=== PATIENT | female | born 1985 ===

== ENCOUNTER 2017-10-24 08:46 | Emergency (ER) | payer BC ==
[2017-10-24 09:09] VITALS: BP 143/86
[2017-10-24] MEDS ORDERED: Clarithromycin TAB* 500 MG PO ONE (09:40)
--- NOTE | 2017-10-24 09:43 | ED ---
Throat Pain/Nasal Congestion - HPI Summary HPI Summary: 32 yr old female with the complaint of sinus pain and pressure. Onset of symptoms a couple of weeks ago with a sinus pressure mostly on the left maxillary sinus area, and green nasal secretions. - History of Current Complaint Chief Complaint: UCRespiratory Time Seen by Provider: 10/24/17 09:01 - Allergies/Home Medications Allergies/Adverse Reactions: Allergies Allergy/AdvReac Type Severity Reaction Status Date / Time Amoxicillin [From Augmentin] Allergy Hives Verified 10/24/17 09:05 Clavulanic Acid Allergy Hives Verified 10/24/17 09:05 [From Augmentin] Home Medications: Home Medications Bcp 1 tab PO DAILY 10/24/17 [History] PMH/Surg Hx/FS Hx/Imm Hx Previously Healthy: Yes Infectious Disease History: No Infectious Disease History: Denies: Traveled Outside the [place] in Last 30 Days - Family History Known Family History: Positive: Other - both parents positive for anxiety - Social History Alcohol Use: Occasionally Substance Use Type: Reports: None Smoking Status (MU): Former Smoker Review of Systems Constitutional: Negative Positive: Nasal Discharge, Other - sinus pressure All Other Systems Reviewed And Are Negative: Yes Physical Exam Triage Information Reviewed: Yes Vital Signs On Initial Exam: Initial Vitals Temp Pulse Resp BP Pulse Ox 98.5 F 74 20 143/86 100 10/24/17 09:05 10/24/17 09:05 10/24/17 09:05 10/24/17 09:05 10/24/17 09:05 Vital Signs Reviewed: Yes Appearance: Positive: Well-Appearing, No Pain Distress Skin: Positive: Warm Eyes: Positive: EOMI ENT: Positive: Pharynx normal, Sinus tenderness - tender to percussion left maxillary sinus Neck: Positive: Supple, Nontender Respiratory/Lung Sounds: Positive: Clear to Auscultation, Breath Sounds Present Cardiovascular: Positive: RRR. Negative: Murmur Abdomen Description: Positive: Nontender Musculoskeletal: Positive: Strength/ROM Intact Neurological: Positive: Sensory/Motor Intact, Alert, Oriented to Person Place, Time, CN Intact II-III Psychiatric: Positive: Normal - Watson Coma Scale Best Eye Response: 4 - Spontaneous Best Motor Response: 6 - Obeys Commands Best Verbal Response: 5 - Oriented Coma Scale Total: 15 Diagnostics - Vital Signs Vital Signs Temp Pulse Resp BP Pulse Ox 10/24/17 09:05 98.5 F 74 20 143/86 100 - Laboratory Lab Statement: Any lab studies that have been ordered have been reviewed, and results considered in the medical decision making process. EENT Course/Dx - Course Course Of Treatment: 32 yr old with sinusitis. Allergic to augmentin. Rx with biaxin. - Diagnoses Provider Diagnoses: Sinusitis, Hypertension Discharge - Discharge Plan Condition: Good Disposition: HOME Prescriptions: Clarithromycin TAB* [Biaxin 500 MG TAB*] 500 mg PO BID #20 tab Patient Education Materials: Sinusitis (ED), Hypertension (ED) Referrals: Mariam Rothman MD [Primary Care Provider] -
== END 2017-10-24 09:46 | disposition home or self-care (01) ==
LOC: UCCORT 08:46
DX: J32.9 Chronic sinusitis, unspecified (principal); I10 Essential (primary) hypertension; Z88.1 Allergy status to other antibiotic agents; Z87.891 Personal history of nicotine dependence
CPT/HCPCS: 99212; A9270-GY; G0463

== ENCOUNTER 2017-11-11 14:02 | Emergency (ER) | payer BC ==
--- OUTSIDE RECORDS SUMMARY | 2017-11-11 14:12 | XMS REPORT ---
:1985 External Reference #:[id number] Author Organization [facility] Address [address] [address] Phone [phone] Care Team Providers Name Role Phone Mariam Rothman MD Care Team Information Bagger Meat Unavailable Payers Type Date Identification Payment Subscriber Numbers Provider Health Maintenance Effective: Policy Number: BCBS Ppo [facility] ([facility] [place]) 08/28/2016 [id number] PayID: [id number] [address] [address] [place] [address] Problems Description No Information Family History Date Family Member(s) Problem(s) Comments Onset: (age 54 Years) Father CAD Father Allergic Rhinitis Father Anxiety Mother Thyroid Disease Mother Depression Children None First Brother PTSD experience Social History Type Date Description Comments Education Higest level completed, Bachelor's Degree Marital Status Single engaged 06/27/16 planned wedding Occupation Currently Working Occupation [employer] care ETOH Use Occasionally consumes alcohol Smoking Patient is a former smoker Recreational Drug Use Denies Drug Use Exercise Type/Frequency Exercises regularly walk, gym, running; 09/16/16 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 min per week, 10k steps per day [facility] Allergies, Adverse Reactions, Alerts Date Description Reaction Status Severity Comments 11/06/2017 Augmentin active Rash On Hands 09/16/2016 NKDA inactive Medications Medication Date Status Form Strength Qnty SIG Indications Ordering Provider Azelastine HCL 08/27/ Active Solution 0.15% 30ml instill J30.9 Tawanna (Nasal) 2017 1 or 2 Mariam mayfield sprays daily into each nostril as needed Fluticasone 07/08/ Active Suspension 50mcg/Act 15.800 2 sprays J30.9 Cunningha Propionate 2017 ml to each Mariam mayfield nostril MD daily Vitamin B-12 00/00/ Active Tablets 1000mcg 1 by Unknown 0000 mouth every day Vitamin D 00/ Active Tablets 2000Unit 1 by Unknown 0000 mouth every day Cyclafem / Active Tablets 1-35mg-mcg 84tabs 1 tab Cunningha 0000 daily--f Mariam mayfield uture MD refills with [facility] Amoxicillin/Clav 08/27/ Hx Tablets 875-125mg 28tabs 1 by J01.90 Tawanna ulanate 2016 - mouth Mariam mayfield, Potassium 09/10/ twice a MD 2016 day Sertraline HCL 09/30/ Hx Tablets 100mg 90tabs 1 by F43.23 Tawanna 2016 - mouth Mariam mayfield, 07/07/ every MD 2016 day Sertraline HCL 09/09/ Hx Tablets 50mg 2 by F43.23 Unknown 2016 - mouth 09/30/ every 2016 day Glycopyrrolate 00/ Hx Tablets 1mg one tab Unknown 0000 - by mouth 07/07/ four 2017 times a day as needed Lorazepam 00/ Hx Tablets 1mg 1 every F43.23 Unknown 0000 - 6 hours 10/17/ as 2017 needed Probiotic Pearls 00/00/ Hx Capsules 1 cap Unknown 0000 - daily 2017 Biotin Maximum 00/00/ Hx Tablets [id number] one day Unknown Strength 0000 - 2017 Immunizations CPT Code Status Date Vaccine Reaction Lot # [id number] Given 07/07/2017 Afluria Imunization [facility] 30082 Given 07/15/2016 Hepatitis B Vac Adolescent Administrative Horner 2 Dose Schedule Medical Srvs [id number] Given 07/15/2016 Afluria Or Fluvirin Flu Administrative Horner Vac Intramuscular Medical Srvs [id number] Given 09/28/2010 Tetanus And Diptheria Toxoids For Adult Use-preservative free Vital Signs Date Vital Result Comment 11/06/2017 Weight 215.00 lb Heart Rate 72 /min BP Systolic Lying Down 120 mmHg HR 72 BP Diastolic Lying Down 70 mmHg HR 72 BP Systolic Sitting 120 mmHg HR 76 BP Diastolic Sitting 80 mmHg HR 76 BP Systolic Standing 120 mmHg HR 76 BP Diastolic Standing 70 mmHg HR 76 Respiratory Rate 18 /min Height 69 inches 5'9" BMI (Body Mass Index) 31.7 kg/m2 08/27/2017 Body Temperature 99.0 F Weight 218.00 lb Heart Rate 78 /min BP Systolic 112 mmHg BP Diastolic 78 mmHg Respiratory Rate 16 /min Height 69 inches 5'9" 10/17/16 O2 % BldC Oximetry 99 % BMI (Body Mass Index) 32.2 kg/m2 07/08/2017 Weight 202.00 lb Heart Rate 76 /min BP Systolic 120 mmHg BP Diastolic 80 mmHg Respiratory Rate 16 /min Height 69 inches 5'9" 10/17/16 BMI (Body Mass Index) 29.8 kg/m2 11/19/2016 Weight 202.00 lb Heart Rate 68 /min BP Systolic 116 mmHg BP Diastolic 80 mmHg Respiratory Rate 14 /min Height 69 inches 5'9" 10/17/16 BMI (Body Mass Index) 29.8 kg/m2 10/17/2016 Weight 201.31 lb Heart Rate 76 /min BP Systolic 122 mmHg BP Diastolic 70 mmHg Respiratory Rate 14 /min Height 69 inches 5'9" 10/17/16 BMI (Body Mass Index) 29.7 kg/m2 09/16/2016 Weight 200.00 lb Heart Rate 72 /min BP Systolic 114 mmHg BP Diastolic 72 mmHg Respiratory Rate 14 /min Height 69.25 inches 5'9.25" 09/16/16 BMI (Body Mass Index) 29.3 kg/m2 Results Test Date Test Result H/L Range Note Laboratory test finding 11/11/2016 Urine HCG NEGATIVE Negative 1, 2 (Qualitative) Laboratory test finding 09/17/2016 TSH 2.62 uIU/mL 0.35-4.94 3 Free T4 0.89 ng/dL 0.70-1.48 3 Comprehensive Metabolic (CMP) 09/17/2016 Sodium 136 mmol/L 134-142 3 Potassium 4.6 mmol/L 3.5-5.2 3 Chloride 104 mmol/L 97-109 3 Carbon Dioxide 29 mmol/L 24-34 3 Glucose 90 mg/dL 70-105 3 BUN 9 mg/dL 6-26 3 Creatinine 0.8 mg/dL 0.5-1.4 3 Calcium 8.7 mg/dL 8.5-10.2 3 Total Protein 6.6 g/dL 6.0-8.0 3 Albumin 3.9 g/dL 3.6-4.9 3 Globulin 2.7 g/dL 2.0-3.5 3 A/G Ratio 1.4 Ratio 1.0-2.2 3 Total Bilirubin 0.8 mg/dL 0.1-1.3 3 Alkaline Phosphatase 31 U/L 24-140 3 Alt 10 U/L 3-42 3 Ast 10 U/L 8-42 3 Anion Gap 8 mmol/L 6-14 3 Deepa Egfr >60 >60 3, 4 Non Deepa Egfr >60 >60 3, 5 CBC With Auto Diff 09/17/2016 WBC 5.8 K/uL 4.1-11.0 3 RBC 4.49 M/uL 4.00-5.40 3 Hemoglobin 13.1 gm/dL 12.0-16.0 3 Hematocrit 39.2 % 36.0-47.0 3 MCV 87.3 fL 80.0-97.0 3 MCH 29.1 pg 27.0-32.0 3 MCHC 33.3 g/dL 32.0-36.0 3 RDW 14.1 % 11.5-14.5 3 PLT Count 249 K/ul 140-400 3 Neutrophil 63.4 % 35.0-75.0 3 Lymphocyte 29.1 % 16.0-52.0 3 Monocyte 5.3 % 2.0-10.0 3 Eosinophil 1.8 % 0.0-5.0 3 Basophil 0.4 % 0.0-4.0 3 Abs Neutrophils 3.7 K/uL 2.1-8.0 3 Abs Lymphocytes 1.7 K/uL 0.8-5.5 3 Abs Monocytes 0.3 K/uL 0.1-1.0 3 Abs Eosinophils 0.1 K/uL 0.0-0.5 3 Abs Basophils 0.0 K/uL 0.0-0.3 3 Lipid 09/17/2016 Cholesterol 139 mg/dL 50-199 3 Triglycerides 74 mg/dL 30-200 3 HDL 57 mg/dL 35-85 3, 6 Chol/ HDL Ratio 2.4 ratio Low 3.7-5.6 3 VLDL 15 mg/dL 2-29 3 LDL (Calc) 67 mg/dL 20-99 3, 7 1 COLONOSCOPY 2 FIRST MORNING SPECIMENS GENERALLY CONTAIN THE HIGHEST CONCENTRATION OF HCG AND ARE RECOMMENDED FOR EARLY DETECTION OF . 3 today letter 4 Concerning GFR Guidelines for Americans: Normal function or mild renal disease, if clinically at risk: >/=60 mL/min Moderately decreased: 30-59 Severely decreased: 15-29 Renal failure: <15 5 Concerning GFR Guidelines: Normal function or mild renal disease, if clinically at risk: >/=60 mL/min Moderately decreased: 30-59 Severely decreased: 15-29 Renal failure: <15 Glomerular Filtration Rate (GFR) is estimated based on the MDRD equation, which assumes a steady state for creatinine as recommended by the National Kidney Disease Education Program in conjunction with the National Institutes of Health and the National Kidney Foundation. Clinical conditions in which it may be necessary to measure GFR by using clearance methods include extremes of age and body size, severe malnutrition or obesity, diseases of skeletal muscle, paraplegia or quadriplegia, vegetarian diet, rapidly changing kidney function, and calculation of the dose of potentially toxic drugs that are excreted by the kidneys. 6 Per NCEP ATP III Guidelines: Results lower than 40 mg/dL are suggestive of increased risk for coronary artery disease. Results > or=to 60 mg/dL are considered a negative risk factor. 7 Per NCEP ATP III Guidelines: Normal Population <130 Patients with medical conditions: CHD/DM Optimal: <100 Borderline high: 130-159 High: 160-189 Very high: >189 Procedures Date CPT Code Description Status Comment 11/12/[address] aJquan Benjamin, 11/11/16 colonoscopy, hyperplastic polyp Document: 11/12/16 - Surgical Pathology Reports Encounters Type Date Location Provider CPT E/M Dx Office Visit 08/27/2017 10:45[place] [address] J01.90 J30.9 R51 K60.0 Office Visit 07/08/2017 3:00p [place] [address] F43.22 J30.9 N87.1 Office Visit 11/19/2016 10:45[place] [address] F43.23 K62.5 Z30.41 Office Visit 10/17/2016 10:15a [place] [address] F43.23 N87.1 K62.5 E03.9 Office Visit 09/16/2016 9:30a [facility] [place] [address] F43.23 E03.9 N87.1 K62.5 Plan of Care 11/06/2017 - Mariam Rothman MDH83.09 Labyrinthitis, unspecified earComments: Pt with a prodrome of minor uri sxs, now with "dizziness" that appears related to labyrinth functionbased on Muhammad pike maneuvers. Advised the most common etiology is labyrinthitis, likely viral. Explained how the infection of the balance system can occcur, pictures used to assist explanation, explained sxs, ways to deal with the loss of balance sensation, etc. Advised the pt of the course of illness, like other viruses, will often worsen before improving, may be helped with meclizine/antivert but usually needs to run its course before improving. Advised to call prn headache, ear pain, fever, orhearing loss develop , or if there are concerns for stroke. Call if sxs lasts > 4 weeks or seem triston severe or do not begin to improve within 2 weeks. Would consider registered physical therapist referral if not improving as she reports sxs since the fallFollow up:as needed
[2017-11-11 14:19] VITALS: BP 159/97
--- NOTE | 2017-11-11 14:56 | UC ---
Throat Pain/Nasal Dwayne HPI - HPI Summary HPI Summary: 32 yo female with sore throat x 1-2 days feverish no n/v - History of Current Complaint Chief Complaint: UCGeneralIllness Stated Complaint: ST/SWOLLEN GLANDS/FATIGUE Time Seen by Provider: 11/11/17 14:52 Hx Obtained From: Patient Hx Last Menstrual Period: 10/18/17 ?: Yes Onset/Duration: Gradual Onset, Lasting Days Severity: Moderate Pain Intensity: 6 Pain Scale Used: 0-10 Numeric Cough: None Associated Signs & Symptoms: Positive: Fever - Epiglottits Risk Factors Epiglottis Risk Factors: Negative - Allergies/Home Medications Allergies/Adverse Reactions: Allergies Allergy/AdvReac Type Severity Reaction Status Date / Time amoxicillin [From Augmentin] Allergy Hives Verified 11/11/17 14:14 clavulanic acid Allergy Hives Verified 11/11/17 14:14 [From Augmentin] PMH/Surg Hx/FS Hx/Imm Hx Previously Healthy: Yes - Surgical History Surgical History: None - Family History Known Family History: Positive: Hypertension, Other - both parents positive for anxiety - Social History Alcohol Use: Occasionally Substance Use Type: None Smoking Status (MU): Former Smoker When Did the Patient Quit Smoking/Using Tobacco: 2013 - Immunization History Most Recent Influenza Vaccination: fall 2015 Review of Systems Constitutional: Fever Skin: Negative Eyes: Negative ENT: Sore Throat Respiratory: Negative Cardiovascular: Negative Gastrointestinal: Negative Genitourinary: Negative Motor: Negative Neurovascular: Negative Musculoskeletal: Negative Neurological: Negative Psychological: Negative Is Patient Immunocompromised?: No All Other Systems Reviewed And Are Negative: Yes Physical Exam Triage Information Reviewed: Yes Appearance: Well-Appearing, No Pain Distress, Well-Nourished Vital Signs: Initial Vital Signs Temp 98.2 F 11/11/17 14:15 Pulse 103 11/11/17 14:15 Resp 18 11/11/17 14:15 BP 159/97 11/11/17 14:15 Pulse Ox 97 11/11/17 14:15 Eyes: Positive: Conjunctiva Clear ENT: Positive: Pharynx normal, Tonsillar swelling, Tonsillar exudate, Uvula midline. Negative: Nasal congestion, Nasal drainage, Trismus, Muffled voice, Hoarse voice Neck: Positive: Supple, Nontender, Enlarged Nodes @ - ant cervical Respiratory: Positive: Lungs clear, Normal breath sounds, No respiratory distress, No accessory muscle use Cardiovascular: Positive: RRR, No Murmur Abdomen Description: Positive: Nontender, No Organomegaly Musculoskeletal: Positive: ROM Intact, No Edema Neurological: Positive: Alert Psychological Exam: Normal Skin Exam: Normal Diagnostics - Laboratory Diagnostic Studies Completed/Ordered: strep (+) Throat Pain/Nasal Course/Dx - Differential Dx/Diagnosis Provider Diagnoses: strep throat Discharge - Discharge Plan Condition: Stable Disposition: HOME Prescriptions: Cephalexin CAP* [Keflex CAP*] 500 mg PO BID #20 cap Patient Education Materials: Strep Throat (ED) Referrals: Mariam Rothman MD [Primary Care Provider] - Additional Instructions: recheck in 4 days if not better
== END 2017-11-11 15:02 | disposition home or self-care (01) ==
LOC: UCCORT 14:02
DX: J02.0 Streptococcal pharyngitis (principal); Z87.891 Personal history of nicotine dependence
CPT/HCPCS: 87651; 99212; G0463

== ENCOUNTER 2018-06-02 07:01 | Emergency (ER) | payer BC ==
[2018-06-02 07:25] VITALS: BP 117/68
[2018-06-02] MEDS ORDERED: Ketorolac INJ* 30 MG/ML 1 ML VIAL IM ONE (07:52)
[2018-06-02] MEDS ORDERED: Ondansetron ODT TAB* 4 MG PO ONE (07:52)
[2018-06-02] MEDS ORDERED: Acetaminophen TAB* 325 MG PO ONE (07:52)
--- NOTE | 2018-06-02 08:03 | ED ---
Headache - HPI Summary HPI Summary: 33 yr old with headache, gradual onset two days ago while walking around at the [facility], located in the right frontal area. Headache is moderate, and non radiating. This feels typical for her migraine headaches. She has mild light sensitivity, and noise sensitivity. No Nausea, vomiting. No fever, chills. No neck stiffness. She states she was on Oral Contraceptives until december and had more frequent headaches while on them; this is the first one in several months. She denies change in vision, speech, hearing, swallowing, denies focal weakness , numbness, gait change. - History Of Current Complaint Chief Complaint: UCHeadache Stated Complaint: MIGRAINE Time Seen by Provider: 06/02/18 07:32 Hx Last Menstrual Period: 01/23/18 - Allergies/Home Medications Allergies/Adverse Reactions: Allergies Allergy/AdvReac Type Severity Reaction Status Date / Time amoxicillin [From Augmentin] Allergy Hives Verified 06/02/18 07:17 clavulanic acid Allergy Hives Verified 06/02/18 07:17 [From Augmentin] Home Medications: Home Medications Ibuprofen TAB* [Advil TAB*] 600 mg PO Q6H PRN 06/02/18 [History Confirmed ] PMH/Surg Hx/FS Hx/Imm Hx Previously Healthy: Yes Infectious Disease History: No Infectious Disease History: Denies: Traveled Outside the [place] in Last 30 Days - Family History Known Family History: Positive: Hypertension, Other - both parents positive for anxiety - Social History Occupation: Employed Full-time Alcohol Use: Occasionally Substance Use Type: Reports: None Smoking Status (MU): Former Smoker Review of Systems Constitutional: Negative Positive: Photophobia. Negative: Blurred Vision, Diplopia, Drainage, Erythema Negative: Rash Positive: Headache All Other Systems Reviewed And Are Negative: Yes Physical Exam Triage Information Reviewed: Yes Vital Signs On Initial Exam: Initial Vitals Temp Pulse Resp BP Pulse Ox 99.2 F 71 16 117/68 98 06/02/18 07:19 06/02/18 07:19 06/02/18 07:19 06/02/18 07:19 06/02/18 07:19 Vital Signs Reviewed: Yes Appearance: Positive: Well-Appearing, No Pain Distress Skin: Positive: Warm, Skin Color Reflects Adequate Perfusion Head/Face: Positive: Normal Head/Face Inspection Eyes: Positive: EOMI, LEANDRA, Other: - no photophobia when shining a light in her eyes. ENT: Positive: Pharynx normal, TMs normal Neck: Positive: Nontender, No Lymphadenopathy. Negative: Nuchal Rigidity Respiratory/Lung Sounds: Positive: Clear to Auscultation, Breath Sounds Present Cardiovascular: Positive: RRR. Negative: Murmur Abdomen Description: Positive: Nontender. Negative: Distended Musculoskeletal: Positive: Strength/ROM Intact Neurological: Positive: Sensory/Motor Intact, Alert, Oriented to Person Place, Time, CN Intact II-III Psychiatric: Positive: Normal - Watson Coma Scale Best Eye Response: 4 - Spontaneous Best Motor Response: 6 - Obeys Commands Best Verbal Response: 5 - Oriented Coma Scale Total: 15 Diagnostics - Vital Signs Vital Signs Temp Pulse Resp BP Pulse Ox 06/02/18 07:19 99.2 F 71 16 117/68 98 - Laboratory Lab Statement: Any lab studies that have been ordered have been reviewed, and results considered in the medical decision making process. Headache Course/Dx - Course Course Of Treatment: 33 yr female with migraine. She feels better after meds. DC home. - Diagnoses Provider Diagnoses: Headache Discharge - Sign-Out/Discharge Documenting (check all that apply): Patient Departure All imaging exams completed and their final reports reviewed: No Studies - Discharge Plan Condition: Good Disposition: HOME Patient Education Materials: Migraine Headache (ED) Forms: *Work Release Referrals: Karl QUINTANA,Fely [Primary Care Provider] - 2 Days - Billing Disposition and Condition Condition: GOOD Disposition: Home
== END 2018-06-02 08:31 | disposition home or self-care (01) ==
LOC: UCCORT 07:01
DX: Z88.0 Allergy status to penicillin (principal); Z88.8 Allergy status to other drugs, medicaments and biological substances; Z87.891 Personal history of nicotine dependence; R51 Headache
CPT/HCPCS: 96372; 99212; A9270-GY; G0463; J1885